=== PATIENT | female | born 1965 | race Caucasian/White ===

== ENCOUNTER 2017-06-22 04:06 | Emergency (ER) | payer SELFPAY ==
[~2017-06-22] VITALS: Ht 157.5 cm; Wt 49.9 kg
[2017-06-22 04:14] VITALS: BP 152/77; PULSE 80; RESP 14; TEMP 98.9; O2SAT 99
--- NOTE | 2017-06-22 04:14 | NUR ---
Patient to ER bed 6 to gown for evaluation. Side rails up. Report given to SHERLY BOLIVAR.
--- NOTE | 2017-06-22 04:18 | NUR ---
ER MD Bernardo Mtz at bedside evaluating the patient
--- NOTE | 2017-06-22 04:20 | NUR ---
Patient to ER C/O severe acute onset of epigastric pain 10/10 with active nausea & vomiting, less than 1 hour prior ER arrival. Denies constipation or diarrhea, afebrile, AAOX4, unlabored breathing.
[2017-06-22] MEDS ORDERED: NACL 0.9% 1,000 ML IV ONE (04:22)
[2017-06-22] MEDS ORDERED: ONDANSETRON HCL 4 MG/2 ML VIAL IVP ONE (04:30)
[2017-06-22] MEDS ORDERED: MORPHINE 4 MG/ML INJ. SYRINGE IVP ONE (04:30)
--- NOTE | 2017-06-22 04:30 | NUR ---
# 18 gauge angiocath placed to right ac. Use of asceptic technique. Opsite placed over site. Blood return noted. Blood for lab drawn from site. Flushed with 10 cc of normal saline. No evidence of infiltration noted. Patient tolerated well.
--- NOTE | 2017-06-22 04:41 | NUR ---
Late entry: Pt's iv fluid started at 0441. ended on 539.
[2017-06-22 04:47] LABS: BILIRUBIN,URINE NEGATIVE (NEGATIVE); BLOOD, URINE 2+ (NEGATIVE); CLARITY/URINE SL CLOUDY (CLEAR); COLOR,URINE YELLOW (YELLOW); GLUCOSE,URINE NEGATIVE (NEGATIVE); KETONES,URINE TRACE (NEGATIVE); LEUKOCYTE ESTERASE ,URINE 1+ (NEGATIVE); NITRITE, URINE POSITIVE (NEGATIVE); PROTEIN URINE NEGATIVE (NEGATIVE); UROBILINOGEN,URINE 0.2 (0.2-1.0)
[2017-06-22 04:50] LABS: BASOPHILS # (AUTO) 0.1 K/uL (0.0-0.2); BASOPHILS % (AUTO) 0.7 % (0.0-2.0); EOSINOPHILS # (AUTO) 0.2 K/uL (0.0-0.4); EOSINOPHILS % (AUTO) 1.6 % (0.0-4.0); HEMATOCRIT 46.6 % (36-48); LYMPHOCYTES # (AUTO) 3.5 K/uL (1.0-5.5); LYMPHOCYTES % (AUTO) 28.2 % (20.5-51.5); MEAN CORPUSCULAR HEMOGLOBIN 29 pg (27-31); MEAN CORPUSCULAR HGB CONC 32 % (32-36); MEAN CORPUSCULAR VOLUME 91 fL (79.0-98.0); MONOCYTES # (AUTO) 0.6 K/uL (0.0-1.0); MONOCYTES % (AUTO) 4.9 % (1.7-9.3); NEUTROPHILS % (AUTO) 64.6 % (40.0-70.0); PLATELET COUNT (AUTO) 379 K/uL (130-430); RED BLOOD CELL COUNT(AUTO) 5.11 MIL/uL (4.2-6.2); RED CELL DISTRIBUTION WIDTH 13.1 % (9.0-15.0); WHITE BLOOD COUNT (AUTO) 12.4 K/uL (4.8-10.8)
[2017-06-22 04:53] LABS: BACTERIA,URINE MANY /HPF (None Seen)
--- NOTE | 2017-06-22 04:55 | NUR ---
Patient reports pain 4/10 15 minutes after administration of morphine, zofran & NS. No adverse reactions noted. Will continue to monitor.
[2017-06-22 05:20] LABS: CALCIUM 9.9 mg/dL (8.4-11.0); CREATININE 1.16 mg/dL (0.55-1.30); POTASSIUM 3.7 mmol/L (3.5-5.1)
[2017-06-22 05:23] LABS: BARBITURATE, URINE NEGATIVE (NEG <=200); BENZODIAZEPINE, URINE POSITIVE (NEG <=150); COCAINE, URINE NEGATIVE (NEG <=150); METHAMPHETAMINES SCREEN,URINE POSITIVE (NEG <=500); URINE AMPHETAMINE POSITIVE (NEG <=500); URINE METHADONE POSITIVE (NEG <=200)
[2017-06-22 05:24] LABS: CANNABINOID, URINE NEGATIVE (NEG <=50); OPIATE, URINE NEGATIVE (NEG <=100); PHENCYCLIDINE SCREEN,URINE NEGATIVE (NEG <=25); UR TRICYCLIC ANTIDEPRESSANTS NEGATIVE (NEG <=300); URINE OXYCODONE SCREEN NEGATIVE (NEG <=100); URINE PROPOXYPHENE SCREEN NEGATIVE (NEG <=300)
[2017-06-22 05:25] LABS: ALBUMIN 3.9 g/dL (3.4-4.8)
[2017-06-22] MEDS ORDERED: SULFAMETHOXAZOLE/TRIMETHOPR DS 1 TABLET PO ONE (05:45)
--- NOTE | 2017-06-22 06:00 | NUR ---
15 minutes after administration of bactrim. No adverse reactions noted. Will continue to monitor.
--- NOTE | 2017-06-22 06:00 | NUR ---
Patient off the unit for CT via gurney
[2017-06-22] MEDS ORDERED: IOHEXOL 100 ML IV ONE (06:08)
--- NOTE | 2017-06-22 06:37 | NUR ---
ER MD Bernardo Mtz at bedside discussing test results and discharge plan.
[2017-06-22 06:57] VITALS: BP 116/71; PULSE 73; RESP 17; TEMP 98.2; O2SAT 98
--- NOTE | 2017-06-22 06:57 | NUR ---
Patient given written and verbal discharge instructions and verbalizes understanding. ER MD Bernardo Mtz discussed with patient the results and treatment provided. Patient in stable condition. ID arm band removed. IV catheter removed intact and dressing applied, no active bleeding. Rx of bactrim given. Patient educated on pain management and to follow up with PMD. Pain Scale 0/10. Opportunity for questions provided and answered.
== END 2017-06-22 06:57 | disposition home or self-care (01) ==
LOC: SED 04:06
DX: N39.0 Urinary tract infection, site not specified (principal); R10.13 Epigastric pain; F15.90 Other stimulant use, unspecified, uncomplicated; F17.200 Nicotine dependence, unspecified, uncomplicated; Z88.4 Allergy status to anesthetic agent
CPT/HCPCS: 36415; 74177; 80053; 80307; 81000; 81025; 82150; 85025; 87086; 87186; 96361; 96374; 96375; 99285; J2270; J2405; J7030; Q9967